=== PATIENT | female | born 1985 | race Two or more races ===

== ENCOUNTER 2019-04-24 19:36 | Emergency (ER) | payer MEDICAID, OTHER ==
[~2019-04-24] VITALS: Ht 157.5 cm; Wt 90.7 kg
[2019-04-24 20:08] VITALS: BP 133/84
== END 2019-04-24 22:36 | disposition left against medical advice (07) ==
LOC: ER 19:41
DX: R22.0 Localized swelling, mass and lump, head (principal); Z53.21 Procedure and treatment not carried out due to patient leaving prior to being seen by health care provider
CPT/HCPCS: 70450; 70480; 72125

== ENCOUNTER 2019-04-25 06:55 | Emergency (ER) | payer MEDICAID ==
[~2019-04-25] VITALS: Ht 157.5 cm; Wt 90.7 kg
[2019-04-25 07:02] VITALS: BP 107/71
== END 2019-04-25 09:37 | disposition home or self-care (01) ==
LOC: ER 06:58
DX: S05.11XA Contusion of eyeball and orbital tissues, right eye, initial encounter (principal); W18.39XA Other fall on same level, initial encounter; Y93.89 Activity, other specified; Y99.8 Other external cause status; Y92.89 Other specified places as the place of occurrence of the external cause

== ENCOUNTER 2019-12-18 11:38 | Emergency (ER) | payer MEDICAID ==
[~2019-12-18] VITALS: Ht 157.5 cm; Wt 93.4 kg
[2019-12-18 12:21] VITALS: BP 120/79
== END 2019-12-18 16:57 | disposition left against medical advice (07) ==
LOC: ER 11:38
DX: R11.2 Nausea with vomiting, unspecified (principal); Z53.21 Procedure and treatment not carried out due to patient leaving prior to being seen by health care provider

== ENCOUNTER → 2020-01-11 | Emergency (ER) | payer MEDICAID ==
[~2020-01-11] VITALS: Ht 157.5 cm; Wt 92.5 kg
[~2020-01-11] MED LIST: MECLIZINE HCL 25 MG TAB PO ONE
[2020-01-11 20:01] LABS: Basophils # (auto) 0 10 ^3/uL (0-0.2); Basophils % (auto) 0.1 % (0.0-2.0); Eosinophils # (auto) 0 10 ^3/uL (0-0.8); Eosinophils % (auto) 0.1 % (0.0-7.0); Hematocrit 39.5 % (36.0-46.0); Hemoglobin 13.7 g/dL (12.2-16.2); Lymphocytes # (auto) 1.5 10 ^3/uL (0.4-5.4); Lymphocytes % (auto) 16.9 % (10.0-50.0); Mean Corpuscular Hemoglobin 30.3 pg (28.0-32.0); Mean Corpuscular Hgb Conc. 34.7 g/dL (32.0-36.0); Mean Corpuscular Volume 87.4 fL (80.0-100.0); Monocytes # (auto) 0.5 10 ^3/uL (0-1.3); Monocytes % (auto) 5.8 % (0.0-12.0); Neutrophils % (auto) 77.1 % (37.0-80.0); Nucleated Red Blood Cells % 0.1 %; Platelet Count (auto) 265 10^3/uL (140-450); Red Blood Cells 4.52 10^6/uL (4.0-5.20); Red Cell Distribution Width 12.9 % (11.8-14.3); White Blood Cell 9.1 10^3/uL (4.4-10.8)
[2020-01-11 20:13] LABS: Alanine Aminotransferase 50 U/L (13-56); Albumin 3.9 g/dL (3.4-5.0); Anion Gap 6 (5-15); Aspartate Aminotransferase 18 U/L (15-37); BUN/Creatinine Ratio 11.3; Blood Urea Nitrogen 8 mg/dL (7-18); Calcium 8.9 mg/dL (8.5-10.1); Carbon Dioxide 26 mmol/L (21-32); Chloride 107 mmol/L (98-107); GFR African American 120 mL/min; GFR Non-African American 99 mL/min; Glucose 93 mg/dL (74-106); Potassium 3.3 mmol/L (3.5-5.1); Sodium 139 mmol/L (136-145)
[2020-01-11 20:17] LABS: Alkaline Phosphatase 59 U/L (45-117); Bilirubin, Total 0.7 mg/dL (0.2-1.0); Total Protein 8.1 g/dL (6.4-8.2)
[2020-01-11 23:06] VITALS: BP 109/61
== END | disposition home or self-care (01) ==
LOC: ER 18:53
DX: R42 Dizziness and giddiness (principal); R53.1 Weakness; Z90.710 Acquired absence of both cervix and uterus
CPT/HCPCS: 36415; 70450; 71045; 80053; 80320; 84484; 85025; 93005; 99285; J8597

== ENCOUNTER 2021-04-16 14:12 | Emergency (ER) | payer MEDICAID ==
[~2021-04-16] VITALS: Ht 157.5 cm; Wt 95.3 kg
[2021-04-16 14:38] LABS: Basophils # (auto) 0 10 ^3/uL (0-0.2); Basophils % (auto) 0.2 % (0.0-2.0); Eosinophils # (auto) 0 10 ^3/uL (0-0.8); Eosinophils % (auto) 0.6 % (0.0-7.0); Hematocrit 41.2 % (36.0-46.0); Hemoglobin 14.6 g/dL (12.2-16.2); Lymphocytes # (auto) 2.2 10 ^3/uL (0.4-5.4); Mean Corpuscular Hemoglobin 30.8 pg (28.0-32.0); Mean Corpuscular Hgb Conc. 35.4 g/dL (32.0-36.0); Monocytes # (auto) 0.6 10 ^3/uL (0-1.3); Monocytes % (auto) 7.9 % (0.0-12.0); Neutrophils # (auto) 4.7 10 ^3/uL (1.6-8.6); Neutrophils % (auto) 62.3 % (37.0-80.0); Platelet Count (auto) 270 10^3/uL (140-450); Red Blood Cells 4.74 10^6/uL (4.0-5.20); Red Cell Distribution Width 12.5 % (11.8-14.3); White Blood Cell 7.6 10^3/uL (4.4-10.8)
[2021-04-16 15:03] LABS: Albumin 3.8 g/dL (3.4-5.0); Anion Gap 6 (5-15); BUN/Creatinine Ratio 14.1; Blood Urea Nitrogen 11 mg/dL (7-18); Calcium 8.6 mg/dL (8.5-10.1); Carbon Dioxide 28 mmol/L (21-32); Chloride 105 mmol/L (98-107); GFR African American 107 mL/min; GFR Non-African American 88 mL/min; Glucose 93 mg/dL (74-106); Magnesium 2.2 mg/dL (1.6-2.6); Potassium 3.9 mmol/L (3.5-5.1); Sodium 139 mmol/L (136-145)
[2021-04-16 15:08] LABS: Alanine Aminotransferase 71 U/L (13-56); Alkaline Phosphatase 67 U/L (45-117); Aspartate Aminotransferase 30 U/L (15-37); Bilirubin, Total 0.3 mg/dL (0.2-1.0); Total Protein 8.2 g/dL (6.4-8.2)
[2021-04-16 15:58] LABS: Urine Bacteria FEW /hpf (None Seen); Urine Blood Negative /uL (Negative); Urine Mucus FEW (None Seen); Urine Specific Gravity 1.022 (1.001-1.035); Urine WBC 2 /hpf (0 - 5)
[2021-04-16 17:08] VITALS: BP 137/86
== END 2021-04-16 17:08 | disposition home or self-care (01) ==
LOC: ER 14:12
DX: R07.89 Other chest pain (principal); J45.909 Unspecified asthma, uncomplicated; Z90.710 Acquired absence of both cervix and uterus
CPT/HCPCS: 36415; 71045; 80053; 81001; 83735; 84484; 85025; 93005

== ENCOUNTER 2021-09-01 19:27 | Emergency (ER) | payer MEDICAID ==
[~2021-09-01] VITALS: Ht 157.5 cm; Wt 103.4 kg
[2021-09-01] MEDS ORDERED: HYDROcodone-ACET 7.5/325MG TAB PO ONE (20:30)
[2021-09-01 21:50] LABS: Basophils # (auto) 0 10 ^3/uL (0-0.2); Basophils % (auto) 0.1 % (0.0-2.0); Eosinophils # (auto) 0.1 10 ^3/uL (0-0.8); Eosinophils % (auto) 0.6 % (0.0-7.0); Hematocrit 41.8 % (36.0-46.0); Hemoglobin 14.9 g/dL (12.2-16.2); Lymphocytes # (auto) 2.4 10 ^3/uL (0.4-5.4); Lymphocytes % (auto) 22.5 % (10.0-50.0); Mean Corpuscular Hgb Conc. 35.6 g/dL (32.0-36.0); Monocytes # (auto) 0.6 10 ^3/uL (0-1.3); Monocytes % (auto) 5.3 % (0.0-12.0); Neutrophils # (auto) 7.5 10 ^3/uL (1.6-8.6); Neutrophils % (auto) 71.5 % (37.0-80.0); Nucleated Red Blood Cells % 0.1 %; Red Blood Cells 4.81 10^6/uL (4.0-5.20); Red Cell Distribution Width 13.2 % (11.8-14.3); White Blood Cell 10.4 10^3/uL (4.4-10.8)
[2021-09-01 22:06] LABS: Albumin 3.6 g/dL (3.4-5.0); BUN/Creatinine Ratio 11.8; Calcium 9.3 mg/dL (8.5-10.1); Potassium 3.6 mmol/L (3.5-5.1)
[2021-09-01 22:20] LABS: Bilirubin, Total 0.5 mg/dL (0.2-1.0); Total Protein 8.5 g/dL (6.4-8.2)
[2021-09-01 22:38] LABS: Urine Bacteria NONE SEEN /hpf (None Seen); Urine Blood Negative /uL (Negative); Urine Mucus FEW (None Seen); Urine Specific Gravity 1.024 (1.001-1.035); Urine WBC 2 /hpf (0 - 5)
[2021-09-02 01:18] VITALS: BP 125/81
== END 2021-09-02 01:20 | disposition home or self-care (01) ==
LOC: ER 19:28
DX: K63.89 Other specified diseases of intestine (principal); D27.0 Benign neoplasm of right ovary; J45.909 Unspecified asthma, uncomplicated; Z90.49 Acquired absence of other specified parts of digestive tract; Z90.710 Acquired absence of both cervix and uterus
CPT/HCPCS: 36415; 74176; 80053; 81001; 82150; 83690; 85025

== ENCOUNTER 2024-07-09 16:01 | Emergency (ER) | payer MEDICAID ==
[~2024-07-09] VITALS: Ht 157.5 cm; Wt 86.4 kg
[2024-07-09 16:20] VITALS: BP 106/77; RESP 16; O2SAT 98
[2024-07-09 18:05] LABS: Urine Bacteria None Seen /hpf (None Seen)
[2024-07-09 18:25] LABS: Urine Blood Negative /uL (Negative); Urine Clarity Clear (Clear); Urine Color Yellow (Yellow); Urine Mucus FEW (None Seen); Urine Protein, UAD TRACE (Negative); Urine Specific Gravity 1.026 (1.001-1.035); Urine Urobilinogen Normal (Negative); Urine WBC 1 /hpf (0 - 5)
[2024-07-09 18:27] VITALS: PULSE 88
[2024-07-10] MEDS: ONDANSETRON HCL 4 MG/2 ML VIAL IV ONE (01:45)
[2024-07-10] MEDS: SODIUM CHLORIDE 0.9% 1,000 ML IV ONE (01:45)
== END 2024-07-10 01:01 | disposition left against medical advice (07) ==
LOC: ER 16:01
DX: R42 Dizziness and giddiness (principal); R53.1 Weakness; J45.909 Unspecified asthma, uncomplicated; E11.9 Type 2 diabetes mellitus without complications; Z98.890 Other specified postprocedural states
CPT/HCPCS: 70450; 71046; 81001; 93005; 99285; J2405